=== PATIENT | male | born 1995 | race Asian ===

== ENCOUNTER → 2016-12-25 | Outpatient (CLI) | payer BC ==
[2014-02-17 18:30] VITALS: BP 118/71
== END ==
LOC: RAD 17:30
DX: Q67.8 Other congenital deformities of chest (principal); R07.89 Other chest pain

== ENCOUNTER → 2017-08-28 | Outpatient (CLI) | payer OTHER ==
[2014-02-17 18:30] VITALS: BP 118/71
== END ==
LOC: LAB 16:58
DX: Z20.2 Contact with and (suspected) exposure to infections with a predominantly sexual mode of transmission (principal)